=== PATIENT | female | born 1990 | race Hispanic/Latino ===

== ENCOUNTER 2017-10-28 07:49 | Emergency (ER) | payer SELFPAY ==
[2017-10-28] MEDS ORDERED: Ibuprofen 800 MG TAB ONE (08:07)
[2017-10-28] MEDS ORDERED: Acetaminophen 500 MG TAB ONE (08:07)
--- NOTE | 2017-10-28 08:38 | RAD ---
AP VIEW CHEST: 10/28/2017 HISTORY: Sore throat. Bodyaches. Abdominal pain. COMPARISON: Not available. FINDINGS: AP view chest demonstrates the lungs to be well aerated. No evidence of active intrathoracic disease is seen. No evidence of effusions, pneumonia, or pneumothorax is seen. IMPRESSION: Unremarkable anterior-posterior view chest. POS: [facility]
[2017-10-28 08:44] LABS: #Neutrophils 9.3 thou/uL (1.40-6.50); %Basophils 0.2 % (0.0-1.0); %Eosinophils 0.2 % (0.0-10.0); %Lymphocytes 8.4 % (21.0-51.0); %Monocytes 9.1 % (0.0-10.0); Hematocrit 44.9 % (36.0-47.0); Mean Platelet Volume 9.2 fL (7.4-10.4); White Blood Cell (WBC) Count 11.4 thou/uL (4.8-10.8)
[2017-10-28 08:47] LABS: Lactic Acid - Sepsis 1.7 mmol/L (0.5-2.2)
[2017-10-28 08:53] LABS: ALT (SGPT) 26 U/L (8-55); AST (SGOT) 23 U/L (5-34); Alkaline Phosphatase 106 U/L (40-150); Anion Gap 16 mmol/L (10-20); BUN (Urea Nitrogen) 9 mg/dL (7.0-18.7); Bilirubin, Total 0.4 mg/dL (0.2-1.2); CK (CPK) 58 U/L (29-168); Calc. Creatinine Clearance 0 mL/min (70-130); Carbon Dioxide 22 mmol/L (22-29); Chloride 102 mmol/L (98-107); Estimated GFR-MDRD Greater than 90; Globulin 4.2 g/dL (2.4-3.5); Protein, Total 9.1 g/dL (6.0-8.3)
[2017-10-28 09:48] LABS: Bilirubin Negative (Negative); Blood, Urine Trace (Negative); Glucose, Urine (Dipstick) Negative (Negative); Ketone, Urine Negative (Negative); Nitrite Negative (Negative); Protein, Urine (Dipstick) Negative (Neg-Trace); Urobilinogen 0.2 mg/dL (0.2-1.0)
[2017-10-28 09:51] LABS: Bacteria/HPF 1+ HPF (None Seen); Hyaline Casts/LPF 0-3 HYALINE CAST LPF (0-3 Hyaline)
== END 2017-10-28 11:22 | disposition home or self-care (01) ==
LOC: ERS 07:49
DX: J11.1 Influenza due to unidentified influenza virus with other respiratory manifestations (principal); R00.0 Tachycardia, unspecified
CPT/HCPCS: 71010; 80053; 81003; 81015; 82550; 83605; 85025; 87040; 93005; 94760; 96360; 96361

== ENCOUNTER 2020-02-10 15:18 | Day surgery (SDC) | payer OTHER ==
[2020-02-10 15:58] VITALS: BMI 40.4
[2020-02-10] MEDS ORDERED: hydrALAZINE 20 MG/ML VIAL SLOW IVP PRN (16:17)
[2020-02-10 17:30] LABS: Amnisure Test No Membranes Rupture (No Rupture)
[2020-02-10 17:32] LABS: Amnisure Internal Control QC ACCEPTABLE (ACCEPTABLE)
--- NOTE | 2020-02-10 17:34 | PDOC.FPROB ---
FMR OB H&P: HPI - History of Present Illness Chief Complaint: LOF Indentification: 29 yo @ 31.4 wks History of Present Illness: Pt comes in complaining around 1400 today was coughing and felt a little gush of water. Has had some fluid leakage ever since then when she coughs. Denies any urinary sx's. Denies any burning when peeing. Denies increased urinary frequency. Denies any vaginal discharge, itching or irritation. Denies any headaches. Reports flashing lights in vision for last month. Pt reports having cough and nasal congestion for the last 2 weeks. reports 4 yo at home has similar sx's. Denies any fevers or chills. denies any SOB. Denies any increased work of breathing. Primary Care Physician: Wolfgang FMR OB H&P: Current - Care : 2 Para: 1 Gestational age: 31.4 - OB Labs Blood type: unknown RH: unknown Antibody Screen: unknown HIV: unknown RPR: unknown HepBsAg: unknown Quad screen: unknown Gonorrhea: unknown Chlamydia: unknown FMR OB H&P: History - Past Medical History PMH: Obesity - OB History OB History: One prior . - Surgical History Sx History: None - Social History Social History: Denies any smoking, drinking or illicit drug use - Family History Family History: Noncontributory FMR OB H&P: Medications - Current Home Medications: Medication Instructions Recorded Confirmed Type Ferrous Sulfate 324 mg PO DAILY 04/05/17 02/10/20 History Vitamin 1 tablet PO DAILY 04/05/17 02/10/20 History metFORMIN [Glucophage] 500 mg PO [facility]- 02/10/20 02/10/20 History Allergies/Adverse Reactions: Allergies Allergy/AdvReac Type Severity Reaction Status Date / Time No Known Allergies Allergy Verified 02/10/20 15:54 FMR OB H&P: ROS - Review of Systems General: denies: fever/chills, night sweats, fatigue Eyes: reports: vision changes (reports flashing lights in vision every now and then for last month.) ENT: denies: nasal congestion Cardiovascular: denies: chest pain Respiratory: reports: cough, congestion. denies: shortness of breath, exercise intolerance Gastrointestinal: denies: abdominal pain, nausea, vomiting, diarrhea, constipation Genitourinary (Female): denies: incontinence, dysuria, hematuria, vaginal discharge, vaginal pain, vaginal bleeding, contractions, vaginal pressure Musculoskeletal: denies: pain Integumentary: denies: itching, rash FMR OB H&P: Vital Signs - Maternal Vital signs: T 99.5, O2 sat 95% on RA - Heart Tones Baseline: 140 Variability: moderate Acceleration: present Deceleration: absent Category: category 1 [place] contractions every: None noted FMR OB H&P: Physical Exam - Physical Exam General: NAD, awake, alert and oriented HEENT: normocephalic and atraumatic, grossly normal vision, grossly normal hearing Neck: FROM Heart: other (Pt was covid r/o and and they did not have sterile stethescope in the room for us to use. We did not take our stethescope in to prevent spread of infection. This is the same for the resp exam.) General: no respiratory distress, other (No increased work of breathing noted) Abdomen: soft, non-tender, no masses Musculoskeletal: FROM in all four extremities Neurological: sensation to pain,touch and proprioception grossly normal - Pelvic Exam Vulva: normal hair distribution, no blood Deviation from normal: some white discharge noted Cervix: no masses, no lesions, no blood (No sign of pooling noted) SVE: 5:00 closed FMR OB H&P: A/P - Problem List (1) Current Visit: Yes Status: Acute (2) Viral URI with cough Current Visit: Yes Status: Acute Code(s): J06.9 - ACUTE UPPER RESPIRATORY INFECTION, UNSPECIFIED Disposition: 29 yo @ 31.4 weeks here w/ concern for LOF -Cat 1 strip. FHR 140. -Amnisure pending. No pooling noted on speculum exam. -VP3 obtained. -Due to patient being covid and to prevent having to go in and out of the room we got GBS and gonorrhea/chlamydia just in case amnisure came back positive. URI sx -Cough and nasal congestion x2 weeks. O2 sats stable. T 99.5 -Covid, Flu and RVP swabs obtained. Will await results -If pt d/c home advised to self quarantine until sx's resolve Discussion: Date/Time: 02/10/20 4116 This H&P was discussed with [] and [] who agree with the above documentation and plan.
== END 2020-02-10 18:10 | disposition home health service (06) ==
LOC: L&D/OP 15:18
PROVIDERS: ATTEND Student in an Organized Health Care Education/Training Program
DX: O99.89 Other specified diseases and conditions complicating pregnancy, childbirth and the puerperium (principal); N89.8 Other specified noninflammatory disorders of vagina; O99.513 Diseases of the respiratory system complicating pregnancy, third trimester; J06.9 Acute upper respiratory infection, unspecified; Z3A.31 31 weeks gestation of pregnancy; Z79.84 Long term (current) use of oral hypoglycemic drugs; Z79.899 Other long term (current) drug therapy
CPT/HCPCS: 84112; 87081; 87480; 87491; 87510; 87591; 87633; 87660; 87804; 99285; U0001

== ENCOUNTER 2020-02-25 11:26 | Day surgery (SDC) | payer OTHER ==
[2020-02-25 11:42] VITALS: BP 123/72; TEMP 98.4; BMI 39.3
[2020-02-25] MEDS ORDERED: hydrALAZINE 20 MG/ML VIAL SLOW IVP PRN (12:41)
--- NOTE | 2020-02-25 12:44 | PDOC.FPROB ---
FMR OB H&P: HPI - History of Present Illness Chief Complaint: decreased FM Indentification: 29 yo at 33.1 wga by unknown dating criteria History of Present Illness: Pt here for decreased movement. Noticed somewhat last night that fetus was not moving as much. This morning she counted 7 kicks in 2 hours so she came in. She has been eating and drinking normally. She has A2-GDM on metformin. Checked her sugar this morning and it was 100. She is unsure if she has had LOF ; says she constantly leaks and is unsure if it is urine, discharge, or small amounts of fluid. Denies VB. Has been having intermittent contractions and some vaginal pressure without lasting pattern or regularity over the past few weeks. + flashes in her vision and headache. BP have been normal at PN appts. Was recently here 02/09 and tested for Covid, found to be negative. Had URI symptoms and positive for rhinovirus. Primary Care Physician: Wolfgang FMR OB H&P: Current - Care : 2 Para: 1001 Gestational age: 33.1 Course/Complications: A2 GDM on metformin Hx of gHTN on ASA81 - OB Labs Blood type: unknown RH: unknown Antibody Screen: unknown HIV: unknown RPR: unknown HepBsAg: unknown Quad screen: unknown Gonorrhea: unknown Chlamydia: unknown GBS: negative (done at last visit here in hospital) FMR OB H&P: History - Past Medical History PMH: Obesity - OB History OB History: x1, induced for gHTN at 39 wga GDM this - P[employer] History [employer] History: denies - Surgical History Sx History: none - Social History Social History: denies - Family History Family History: denies FMR OB H&P: Medications - Current Home Medications: Medication Instructions Recorded Confirmed Type Vitamin 1 tablet PO DAILY 04/05/17 02/25/20 History metFORMIN [Glucophage] 500 mg PO HS 02/10/20 02/25/20 History Aspirin 81 mg PO DAILY 02/25/20 02/25/20 History Allergies/Adverse Reactions: Allergies Allergy/AdvReac Type Severity Reaction Status Date / Time No Known Allergies Allergy Verified 02/10/20 15:54 FMR OB H&P: ROS - Review of Systems General: denies: fever/chills Eyes: reports: scotomas. denies: eye pain ENT: denies: nasal congestion, rhinorrhea, ear pain, ringing in ears Cardiovascular: denies: chest pain Respiratory: denies: cough Gastrointestinal: denies: abdominal pain Genitourinary (Female): reports: polyuria, contractions, vaginal pressure. denies: dysuria, vaginal discharge Musculoskeletal: reports: pain Neurologic: denies: weakness Integumentary: denies: rash Psychological: denies: depression, anxiety FMR OB H&P: Vital Signs - Maternal Vital signs: Vital Signs - First Documented Temp Pulse Resp BP 98.4 F 91 18 123/72 02/25/20 11:41 02/25/20 11:41 02/25/20 11:41 02/25/20 11:41 - Heart Tones Baseline: 160 (reactive) [place] contractions every: uterine irritability FMR OB H&P: Physical Exam - Physical Exam General: NAD, awake, alert and oriented HEENT: normocephalic and atraumatic, no scleral icterus, grossly normal vision, grossly normal hearing Neck: supple, trachea midline Heart: RRR, normal S1/S2, no murmurs/rubs/gallops, no edema General: CTAB, no respiratory distress, no wheezing Abdomen: soft, gravid, non-tender Musculoskeletal: pulses present Skin: no rash Lymphatic: no unusual bruising or bleeding Psychiatric: intact recent and remote memory, normal mood and affect - Pelvic Exam Cervix: no masses SVE: fingertip/50%/high Membranes: intact, no pooling on exam Estimated Weight: 6 lbs FMR OB H&P: Results - Labs Lab results: amnisure negative. FMR OB H&P: A/P - Problem List (1) Decreased movement Status: Acute Code(s): O36.8190 - DECREASED MOVEMENTS, UNSP TRIMESTER, UNSP (2) Status: Acute Disposition: observed on L&D. May discharge home w/ return precautions given. Pt has BPP tomorrow w/ Dr. Goss. Discussion: Date/Time: 02/25/20 1242 29 yo at 33.1 here for: Decreased FM - improved since arrival. - NST reactive. Initially tachycardic but improved as pt relaxed to 150 bpm - f/u w/ PCP tomorrow for regularly scheduled BPP/NST Vaginal fluid - amnisure negative - no pooling on speculum exam Intermittent contractions - Cervix fingertip/50%/high - no regular contractions on monitoring - uterine irritability apparent - return precautions given A2GDM - continue metformin Hx of gHTN - continue ASA81 This H&P was discussed with Dr. Cedillo, who agrees with the above documentation and plan. Signature: Maxwell Quintero MD PGY1 Addendum - Attending - Attending Attestation Date/Time: 02/26/20 1628 I personally evaluated the patient and discussed the management with Dr. Quintero on 02/25/20. I agree with the History, Examination, Assessment and Plan documented above with any addition or exceptions noted below. 29 yo at 33.1 here for decreased FM on kick counts and fluid leak.. FHT 's Cat 1 and reactive. Pt. feeling movement now and exam/amnisure negative for ROM. Stable for d/c to continue kick counts as previously instructed.
[2020-02-25 13:09] LABS: Amnisure Internal Control QC ACCEPTABLE (ACCEPTABLE); Amnisure Test No Membranes Rupture (No Rupture)
== END 2020-02-25 13:44 | disposition home or self-care (01) ==
LOC: SJX 11:26 → L&D/OP 13:44
PROVIDERS: ATTEND Student in an Organized Health Care Education/Training Program
DX: O36.8130 Decreased fetal movements, third trimester, not applicable or unspecified (principal); O24.415 Gestational diabetes mellitus in pregnancy, controlled by oral hypoglycemic drugs; O47.03 False labor before 37 completed weeks of gestation, third trimester; O99.89 Other specified diseases and conditions complicating pregnancy, childbirth and the puerperium; N89.8 Other specified noninflammatory disorders of vagina; Z3A.33 33 weeks gestation of pregnancy; Z79.82 Long term (current) use of aspirin; Z79.84 Long term (current) use of oral hypoglycemic drugs; Z11.59 Encounter for screening for other viral diseases
CPT/HCPCS: 84112; 99284

== ENCOUNTER 2020-03-04 19:39 | Day surgery (SDC) | payer MEDICAID, OTHER ==
[2020-03-04 20:05] VITALS: BP 136/88; TEMP 98.5; BMI 40.0
[2020-03-04] MEDS ORDERED: hydrALAZINE 20 MG/ML VIAL SLOW IVP PRN (21:05)
--- NOTE | 2020-03-04 21:10 | PDOC.FPROB ---
R OB H&P: HPI - History of Present Illness Chief Complaint: CTX Indentification: History of Present Illness: Patient is a 29 y/o female at 34.2W EGA by LMP, c/w 9.4W US, who presents to L&D for evaluation of contractions. Patient states that she began to feel the contractions suddenly at 0400 today, and that they were occurring Q5M and increasing in severity. Patient denies loss of fluid, vaginal bleeding or discharge or loss of movement. Patient's course has been complicated by A2GDM, for which she takes Metformin 1000 mg PO daily, and gHTN, for which she takes a daily ASA. Patient states that her POC Glucose readings at home are in the 110s and 120s, and that she checks her SBPs daily with readings typically ranging from 120s to 130s w/o severe-range pressures. Patient states that all testing has been unremarkable thus far, specifically with regard to HIV, RPR, HepB, HepC, GC and Chlamydia. She denies recent sexual intercourse. Patient denies fevers, chills, N/V, VANEGAS, visual disturbances, auditory disturbances, cough, chest pain, peripheral edema, shortness of breath, RUQ pain , recent sexual intercourse, dysuria and recent falls or trauma. Primary Care Physician: [facility] - Dr. 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 Patient is currently unemployed. - Family History Family History: Unsure of FHx, as patient is not close with her parents. FMR OB H&P: Medications - Current Home Medications: Medication Instructions Recorded Confirmed Type Vitamin 1 tablet PO DAILY 04/05/17 03/04/20 History metFORMIN [Glucophage] 500 mg PO HS 02/10/20 03/04/20 History Aspirin 81 mg PO DAILY 02/25/20 03/04/20 History Allergies/Adverse Reactions: Allergies Allergy/AdvReac Type Severity Reaction Status Date / Time No Known Allergies Allergy Verified 03/04/20 19:57 FMR OB H&P: ROS - Review of Systems General: reports: fatigue. denies: fever/chills, recent trauma Eyes: denies: vision changes ENT: denies: rhinorrhea Cardiovascular: denies: chest pain, edema Respiratory: denies: cough, shortness of breath Gastrointestinal: denies: nausea, vomiting Genitourinary (Female): reports: vaginal pain, contractions, vaginal pressure. denies: dysuria, hematuria, vaginal discharge, vaginal bleeding Musculoskeletal: denies: arthritis/arthralgias Neurologic: denies: seizures, weakness, headache FMR OB H&P: Vital Signs - Maternal Vital signs: Vital Signs - First Documented Temp Pulse Resp BP 98.5 F 90 18 136/88 03/04/20 19:55 03/04/20 19:55 03/04/20 19:55 03/04/20 19:55 - Heart Tones Baseline: 150 Variability: moderate Acceleration: absent Deceleration: absent FMR OB H&P: Physical Exam - Physical Exam General: NAD, awake, alert and oriented, other (Breathing through contractions.) HEENT: normocephalic and atraumatic, PERRLA, EOMI, conjunctiva clear, no scleral icterus, grossly normal vision, grossly normal hearing Neck: supple, FROM, trachea midline, no LAD Chest: non-tender to palpation, no lesions Breast: symmetric Heart: RRR, normal S1/S2, no murmurs/rubs/gallops, pulses present, no edema General: CTAB, no respiratory distress, good air movement, no rales/rhonchi, no wheezing, no retractions Abdomen: gravid, non-tender, bowel sound present Musculoskeletal: pulses present, FROM in all four extremities, no misalignment/ asymmetry, no atrophy Neurological: sensation to pain,touch and proprioception grossly normal Skin: no rash, no jaundice Lymphatic: no unusual bruising or bleeding, no purpura, no petechia, no LAD Psychiatric: intact recent and remote memory, good judgement and insight, normal mood and affect - Pelvic Exam Vulva: normal hair distribution Cervix: no masses, no blood SVE: 1.5/50/High Mckee score: 3 Membranes: Intact Presentation: Vertex FMR OB H&P: A/P - Problem List (1) contractions Current Visit: Yes Status: Acute Code(s): O47.9 - FALSE LABOR, UNSPECIFIED (2) Gestational diabetes Current Visit: Yes Status: Acute Code(s): O24.419 - GESTATIONAL DIABETES MELLITUS IN , UNSP CONTROL (3) Gestational hypertension Current Visit: Yes Status: Acute Code(s): O13.9 - GESTATIONAL HTN W/O SIGNIFICANT PROTEINURIA, UNSP TRIMESTER (4) Obesity Current Visit: Yes Status: Chronic Code(s): E66.9 - OBESITY, UNSPECIFIED (5) Current Visit: No Status: Acute Disposition: Patient is a 29 y/o female at 34.2W EGA by LMP, c/w 9.4W US, who presents to L&D for evaluation of CTX. 1. CTX -Patient's CTX were initially Q5M, but have spaced out to Q7-8M - increasingly painful -Patient denies loss of fluids, vaginal bleeding or discharge, or decreased movement -Maternal VSS -FHTs in the 150s w/ moderate variability, no acels or decels -CTX Q7-8M -SVE (2100): 1.5/5-/High -Will administer 1L NS bolus and Betamethasone 12 mg Q24H for lung maturation -Plan for repeat SVE in 2H to assess for cervical change 2. A2GDM -Currently well-controlled with Metformin 1000 mg PO daily -Adjust plan accordingly if patient is admitted for Pre-Term Labor 3. gHTN -Multiple SBPs in the high 130s and low 140s since presentation -Per chart review, Pre-E labs were WNL -Will repeat Urine Protein/Creatinine, CBC, CMP at this time -Hydralazine 10 mg PO PRN for elevated BPs 4. Obesity -Patient is at increased risk of Macrosomia based on body habitus and Hx of prior LGA baby -Adjust plan accordingly if patient is admitted for Pre-Term Labor PCP: [facility] - Dr. Goss Diet: NPO Activity: Ad ja VTE PPx: None IVF: 1L NS Bolus Dispo: Patient is currently stable and being monitored on L&D. Await lab results as per above and plan for repeat SVE in 2H in order to assess for cervical change - alter plan as necessary. Expected LOS < 8H Discussion: Date/Time: 03/04/202109 This H&P was discussed with [] and [] who agree with the above documentation and plan.
[2020-03-04] MEDS ORDERED: Sodium Chloride 0.9% 1,000 ML IV SCH (21:15)
[2020-03-04] MEDS ORDERED: Betamet Acet/Betamet Na Ph 30 MG/5 ML VIAL IM SCH (21:15)
--- NOTE | 2020-03-04 21:24 | HP ---
TIME OF EVALUATION: Roughly 2049, it is now 2101. LOCATION: Triage A. This is a patient of the clinic who was first seen by the residents on-call. I have seen the patient at bedside and I agree with the plan. In brief, this patient is a female, 29-year-old, G2, P1, who is currently at 34 weeks and 2 days by LMP and a 1st trimester ultrasound which agrees. She is here for possible contractions that are irregular. She denies vaginal bleeding or leakage of fluid and she has good movement. She does her complicated by A2 diabetes mellitus, and she is on metformin 1000 mg daily. She is also on low-dose aspirin. She has a history of PIH with her first and she has had previous PIH workup at the clinic. She does not have headaches, right upper quadrant change, or history of chronic hypertension. REVIEW OF SYSTEMS: Complete review of systems was checked and is otherwise negative unless specified in the HPI. OB HISTORY: Significant for previous term delivery. PAST MEDICAL HISTORY: Obesity. complications include A2 diabetes. ALLERGIES: NONE. PHYSICAL EXAMINATION: VITAL SIGNS: Her BMI is 40. Blood pressure is 140/90. She is afebrile. Pulse is in 80s to 90s. GENERAL: She is in no acute distress. ABDOMEN: Soft and nontender. MUSCULOSKELETAL: Cervical exam is pending. On the monitor, heart tones are reactive at 140s with no pathological decelerations. There is some uterine irritability and occasional contractions noted. ASSESSMENT: This is a 29-year-old G2, P1, at 34 weeks and 2 days by sure dating criteria with threatened labor. PLAN: 1. At 34 weeks, no indication for FFN and as we will manage her expectantly. 2. AmniSure not collected as there is no history or suspicion of leakage. 3. I have ordered AST, creatinine and a CBC and a urine protein to creatinine ratio for blood pressures. 4. If her blood pressures continue to be mildly elevated, we can follow her up in 48 hours as long as there is no severe criteria. 5. Celestone for threatened labor as she is under 36 weeks and 6 days. I did explain this to her that we would give her one injection now and another one in 24 hours. I did explain to her that this may alter her blood sugars, but because she is not a brittle diabetic, the risk of hyperglycemia is accepted over the benefit of late steroids. 6. We will check her cervix in about 2 hours or so to see if there is any cervical change. 7. Admission if there is suspicion of active labor. Job ID: [id number]
[2020-03-04 21:38] LABS: #Basophils 0.1 thou/uL (0.0-0.2); #Eosinphils 0.1 thou/uL (0.0-0.7); #Lymphocytes 1.9 thou/uL (1.20-3.40); #Monocytes 0.6 thou/uL (0.11-0.59); #Neutrophils 5.9 thou/uL (1.40-6.50); %Basophils 0.6 % (0.0-1.0); %Eosinophils 0.6 % (0.0-10.0); %Lymphocytes 22.3 % (21.0-51.0); %Monocytes 6.6 % (0.0-10.0); %Neutrophils 69.8 % (42.0-75.0); Hemoglobin 12.5 g/dL (12.0-16.0); Mean Corpuscular HGB CONC 33.3 g/dL (32.0-36.0); Mean Corpuscular Hemoglobin 27.8 pg (27.0-31.0); Mean Corpuscular Volume 83.7 fL (78.0-98.0); Mean Platelet Volume 9.4 fL (7.4-10.4); Platelet Count 217 thou/uL (130-400); RBC Distribution Width 13.5 % (11.5-14.5); White Blood Cell (WBC) Count 8.5 thou/uL (4.8-10.8)
[2020-03-04 22:00] LABS: Creatinine, Urine 49.89 mg/dL (47-110)
[2020-03-04 22:02] LABS: ALT (SGPT) 12 U/L (8-55); AST (SGOT) 10 U/L (5-34); Albumin 3.7 g/dL (3.5-5.0); Alkaline Phosphatase 158 U/L (40-110); Anion Gap 15 mmol/L (10-20); BUN (Urea Nitrogen) 6 mg/dL (7.0-18.7); Bilirubin, Total 0.2 mg/dL (0.2-1.2); Calc. Creatinine Clearance 217 mL/min (70-130); Calcium 9.4 mg/dL (7.8-10.44); Carbon Dioxide 19 mmol/L (22-29); Chloride 107 mmol/L (98-107); Estimated GFR-MDRD Greater than 90; Globulin 3.1 g/dL (2.4-3.5); Glucose 115 mg/dL (70-105); Potassium 3.5 mmol/L (3.5-5.1); Protein, Total 6.8 g/dL (6.0-8.3); Sodium 137 mmol/L (136-145)
--- NOTE | 2020-03-04 23:26 | PDOC.LDPN ---
Labor & Delivery Progress Note - Subjective Subjective: painful contractions - Objective Abnormal vital signs: BP @ ~2254 160/88 General: breathing through contractions Dilation: 1.5 Effacement: 50% Station: -3 FHT: category 1 [place] contractions every: ~7 minutes Resuscitative measures: maternal IV fluids - Assessment (1) Gestational diabetes Code(s): O24.419 - GESTATIONAL DIABETES MELLITUS IN , UNSP CONTROL Current Visit: Yes Status: Acute (2) Gestational hypertension Code(s): O13.9 - GESTATIONAL HTN W/O SIGNIFICANT PROTEINURIA, UNSP TRIMESTER Current Visit: Yes Status: Acute (3) contractions Code(s): O47.9 - FALSE LABOR, UNSPECIFIED Current Visit: Yes Status: Acute (4) Obesity Code(s): E66.9 - OBESITY, UNSPECIFIED Current Visit: Yes Status: Chronic Plan: other -: Patient is a 29 y/o female at 34.2W EGA by LMP, c/w 9.4W US, who presents to L&D for evaluation of CTX. 1. CTX, r/o labor -Patient's CTX still occuring Q7-8M & painful s/p 1L NS bolus but repeat SVE unchanged after 2 hours of monitoring. -Maternal VS WNLs w/ exception of 1 isolated severe range BP as noted below. -FHTs in the 120s w/ moderate variability & + accels, cat 1 strip -s/p Betamethasone 12 mg IM for lung maturation -Plan for d/c home with return visit tomorrow for second steroid injection. 2. A2GDM -Currently well-controlled with Metformin 1000 mg PO daily. Continue upon d/c. Counseled that steroids will cause transient elevation in BG levels. 3. gHTN -4 elevated SBPs since presentation & only 1 isolated severe range pressure after getting back from bathroom @ ~2254 @ 160/88 but asymptomatic for severe features and repeat BP right after below severe range. -Pre-E labs negative w/ NL Plts, AST/ALT, & Cr @ 217, 10/12, & 0.63 respectively. Urine protein:Creatinine ratio of 0.26. -Counseled to continue BID BP monitoring at home and to return to L&D if any severe range pressures noted at home and/or she develops any severe range symptoms including VANEGAS, worsening vision changes, chest or RUQ pain, and/or shortness of breath. 4. Obesity -Aware. Patient is at increased risk of Macrosomia based on body habitus and Hx of prior LGA baby. Dispo: Patient remains stable w/ Cat 1 tracing after 2 hours of monitoring on L& D. Will d/c home with instructions to return to L&D tomorrow for second IM steroid injection and sooner should she develop gHTN severe features as noted above.
--- NOTE | 2020-03-04 23:33 | PDOC.EVN ---
Event Note - Event Note Event Note: B)Ps with one systolic value of 160 (isolated). ASX. Ok for recheck BP in 24 hrs with second celestone tomorrow PM. Labs reviewed
== END 2020-03-04 23:32 | disposition home or self-care (01) ==
LOC: L&D/OP 19:39
PROVIDERS: ATTEND Student in an Organized Health Care Education/Training Program
DX: O60.03 Preterm labor without delivery, third trimester (principal); O24.415 Gestational diabetes mellitus in pregnancy, controlled by oral hypoglycemic drugs; O13.3 Gestational [pregnancy-induced] hypertension without significant proteinuria, third trimester; O99.213 Obesity complicating pregnancy, third trimester; E66.9 Obesity, unspecified; Z3A.34 34 weeks gestation of pregnancy; Z79.82 Long term (current) use of aspirin; Z79.84 Long term (current) use of oral hypoglycemic drugs
CPT/HCPCS: 36415; 80053; 82570; 84156; 85025; 96360; 96372; 99284; J0702

== ENCOUNTER 2020-03-05 11:09 | Inpatient (IN) | payer MEDICAID, OTHER, SELFPAY ==
[2020-03-05] MEDS ORDERED: hydrALAZINE 20 MG/ML VIAL SLOW IVP PRN ×2 (12:04→12:26)
[2020-03-05] MEDS ORDERED: Methylergonovine 0.2 MG/ML VIAL IM PRN (12:26)
[2020-03-05] MEDS ORDERED: Carboprost 250 MCG/ML AMP IM PRN (12:26)
[2020-03-05] MEDS ORDERED: Misoprostol 200 MCG TAB PR PRN (12:26)
[2020-03-05] MEDS ORDERED: Acetaminophen 500 MG TAB PO PRN (12:26)
[2020-03-05] MEDS ORDERED: Lidocaine 1% (PF) 30 ML VIAL SC PRN (12:26)
[2020-03-05] MEDS ORDERED: Promethazine HCl 25 MG/ML VIAL IM PRN (12:26)
[2020-03-05] MEDS ORDERED: Ondansetron PF 4 MG/2 ML Vial IVP PRN (12:26)
[2020-03-05] MEDS ORDERED: Lactated Ringer's 1,000 ML IV SCH (12:30)
--- NOTE | 2020-03-05 12:37 | PDOC.LDHP ---
Labor and Delivery H&P Chief complaint: contractions, other (vaginal bleeding) HPI: Patient is a 29yo @ 34.3wga c/w 9.4wk US that presents to L&D for vaginal bleeding and contractions. Patient reports that she noticed vaginal bleeding this morning while she was in the shower. She also endorses contractions that started at 830am this morning and she has felt them every 5min. She denies LOF, denies headache, vision changes, abdominal pain, swelling, chest pain, cough, sob. She endorses decreased FM over the last 2 weeks including today. She was at [facility] last night for contractions and did not make cervical change from 1.5/50/-3. She received one dose of celestone at 930pm last night. She also had one severe BP last night and had pre-e labs done, which were negative. Due to no cervical change manager 2 hours she was discharged with instructions to f/u today for her second celestone injection. has been complicated by A2GDM on 1000mg metformin qd and gHTN, patient on daily asa. Due date: 04/13/20 Grav: 2 Para: 1 OB History Details: 06/19/17: @ 38wga, 9lb 4oz, M -complicated by: macrosomia, A1GDM, elevated BP requiring home monitoring Current complications: gestational diabetes, gestational hypertension Abnormal US findings: No Past Medical History: None Last pap: 2017 (NILM) Current medications: pre-marilou vitamins, iron, other (asa) Previous surgical history: none Allergies/Adverse Reactions: Allergies Allergy/AdvReac Type Severity Reaction Status Date / Time No Known Allergies Allergy Verified 03/04/20 19:57 Social history: none - Physical Exam Abnormal vital signs: BP 141/83 > 131/84 General: NAD, resting Heart: RRR Lungs: nonlabored breathing Abdomen: NTTP Extremeties: trace edema FHT: category 2, variable decelerations, absent or minimal variables [place] contractions every: 8min - Vaginal Exam cm dilated: 3 Effacement: 75% Station: 0 - OB Labs Blood type: O RH: positive Antibody Screen: negative HIV: negative RPR: negative HEPSAg: negative 1 hour GCT: positive Rubella: immune Additional Labs: Chlamydia neg Gonorrhea neg A1C 5.9 H/H 11.4/33.2 on 12/11/19 H/H 12.6/37.1 on 02/20/20 fasting bg 105 1hr gtt 228 2hr gtt 175 Progenity: negative, male fetus - Assessment L&D Assessment: labor - Plan Plan: admit to L&D, GBS antibiotic prophylaxis, anesthesia consult for pain management -: Patient is a 29yo @ 34.3wga c/w 9.4wk US that will be admitted to L&D for: # labor #Vaginal bleeding #sIUP, -placenta location posterior per prior US -cervical check 1.550/-3 last night -cervical check /0 @ 1220 03/05 -no pooling appreciated on sterile spec exam, 20ml of vaginal blood seen -will admit to L&D for presumed labor -received 1st dose of celestone last night, will give second dose for respiratory maturation -1L bolus LR followed by 125ml/hr LR -prophylactic IV penicillin 2/2 labor and unknown GBS status -GBS swab pending -q2h accuchecks for GDM -FHT: minimal variability with 1 variable decel, BPP pending -will continue to monitor FHT and monitor to see if patient makes cervical change, no augmentation -neonatology consulted, appreciate recs #GDM -patient was on metformin at home -q2h accuchecks #gHTN -patient had initial BP of 141/83 -had one severe BP last night, pre-e labs negative -patient asymptomatic today, denies VANEGAS, vision changes, swelling -will continue to monitor BP and consider repeating pre-e labs if patient has severe pressures #Obesity #Hx of macrosomic baby -aware -EFW 64.6% on last growth US 11/15/2019 Dispo: admit to L&D for presumed labor: 2nd dose of steroids, IV penicillin for prophylaxis, continued monitoring and q4h cervical checks PCP: Elham/Salome Addendum - Attending - Attending Attestation Date/Time: 03/06/20 2724 I personally evaluated the patient and discussed the management with the team on day of admission. I agree with the History, Examination, Assessment and Plan documented above with any addition or exceptions noted below. PTL with vaginal bleeding, ddx includes placental abruption. GBS swab and being ppx. Complete steroid course. Initially cat 2 FHTs with occasional variables but cat 1 after fluid bolus. Expectant management.
[2020-03-05] MEDS ORDERED: Betamet Acet/Betamet Na Ph 30 MG/5 ML VIAL IM SCH (12:45)
[2020-03-05] MEDS ORDERED: Penicillin G Potassium 5 MILL.UNITS in Sodium Chloride 0.9% 100 ML IVPB SCH (12:45)
[2020-03-05 13:25] VITALS: BMI 40.0
--- NOTE | 2020-03-05 13:26 | PDOC.APC ---
Antepartum Consult SINTIA STILL is a 29 year old female at [34 3/7] gestational weeks. I was asked by Dr Flowers to speak with the patient regarding anticipated course for a baby born at 34 weeks. I spoke with the patient. I outlined that the timing and mode of delivery is a decision that will be made by the OB service. Once the patient is taken for delivery, the resuscitation team will be present. The initial focus will be on respiratory stabilization and may include minimal assistance, CPAP or intubation with surfactant administration. I discussed that the patient will need to be admitted to the NICU in an isolette due to temperature instability associated with prematurity. We will then obtain IV access (peripheral will be first line, umbilical if unable to obtain peripheral) as babies are at risk for hypoglycemia. We discussed that babies born are at higher risk for feeding intolerance, infection and jaundice. I discussed that breastmilk is the best nutrition for babies and she is strongly encouraged to pump after delivery. Mother does plan to breastfeed. I explained that the duration of hospital stay will be determined on the clinical course of the baby. I outlined the milestones that needed to be achieved to ensure safe discharge home. She had the opportunity to ask questions. I encouraged her to contact our service again if additional questions arise. I spent a total of 20 minutes with patient & family with greater than 50% of the time counseling & coordinating care.
--- NOTE | 2020-03-05 13:33 | ULT ---
ULTRASOUND BIOPHYSICAL PROFILE: DATE: 03/05/2020 HISTORY: 29-year-old female. Evaluate biophysical profile and placental location. FINDINGS: breathin tone: 2 movement: 2 Amniotic fluid volume: 2 Placenta: Left lateral. presentation: Vertex heart rate: 147 bpm CHIQUITA: 7.5 cm Maternal cervix: Completely obscured. IMPRESSION: 1. Normal biophysical profile score of 8 out of 8, excluding the nonstress test. 2. Amniotic fluid index 7.5 cm.
[2020-03-05 13:53] LABS: Hemoglobin 13.2 g/dL (12.0-16.0); Mean Corpuscular HGB CONC 33.7 g/dL (32.0-36.0); Mean Corpuscular Hemoglobin 28.5 pg (27.0-31.0); Mean Corpuscular Volume 84.4 fL (78.0-98.0); Platelet Count 222 thou/uL (130-400); RBC Distribution Width 13.8 % (11.5-14.5); Red Blood Cell (RBC) Count 4.62 mill/uL (4.20-5.40); White Blood Cell (WBC) Count 12.5 thou/uL (4.8-10.8)
[2020-03-05 14:32] LABS: Syphilis Antibody Nonreactive (Nonreactive); Syphilis Antibody Index 0.06 S/CO (<1.00 Non-Reactive)
[2020-03-05 14:33] LABS: HBSAg Index 0.17 S/CO (0-0.99); Hep B Surf Ag Non-Reactive S/CO (NonReactive)
--- NOTE | 2020-03-05 16:04 | PDOC.LDPN ---
Labor & Delivery Progress Note - Subjective Subjective: comfortable, painful contractions - Objective Vital signs reviewed and normal: yes -: Patient is a 29yo @ 34.3wga c/w 9.4wk US that will be admitted to L&D for: # labor - 2330 1.5/50/-3 - 1230 3/50/0 - 1600 3/50/0 - s/p 2 doses celestone, 2nd dose 1300 on 03/05 - GBS pending, penicillin ppx started 1300 - neonatology has visited with patient Cat I- good variability, accels present, no consistent decels, baseline 140 -> 1-2 variable decels per hour with contractions but not consistent #Vaginal bleeding - differential includes bloody show, cervical irritation from checks, or developing placental abruption - at this time great variability and accels present, H/H appropriate, will monitoring, discussed possibility of with mother should status change - posterior placenta # GDMA2 - controlled with metformin - accuchecks q2 hr #gHTN -patient had initial BP of 2 mild range pressures thus far -had one severe BP last night, pr/cr 0.26 -patient asymptomatic currently, denies VANEGAS, vision changes, swelling -will continue to monitor BP and consider repeating pre-e labs as needed #Obesity #Hx of macrosomic baby -EFW 64.6% on last growth US 11/15/2019 Dispo: admit to L&D for presumed labor: 2nd dose of steroids, IV penicillin for prophylaxis, continued monitoring and q4h cervical checks PCP: ESTHER-Wolfgang/Salome Addendum - Attending - Attending Attestation Date/Time: 03/06/20 1345 I personally evaluated the patient and discussed the management with the team. I agree with the History, Examination, Assessment and Plan documented above with any addition or exceptions noted below. Cat 1 on my review in the afternoon with rare variable. Continue expectant management.
[2020-03-05] MEDS: Lactated Ringer's 1,000 ML IV SCH (16:45)
[2020-03-05] MEDS: Penicillin G 2.5 MILL.units 2.5 MILL.UNITS in Premix Bag 1 BAG IVPB SCH ×2 (17:51→21:12)
[2020-03-05] MEDS ORDERED: Dextrose 5% in Water 1,000 ML IV PRN (19:42)
[2020-03-05] MEDS ORDERED: HumaLOG 300 UNITS/3 ML VIAL SC PRN ×2 (19:42)
[2020-03-05] MEDS ORDERED: Dextrose 50% Abboject 50 ML SYRINGE SLOW IVP PRN (19:42)
[2020-03-05] MEDS: Butorphanol Tartrate 1 MG/ML VIAL SLOW IVP PRN ×2 (20:14→22:25)
[2020-03-05 21:07] LABS: Creatinine, Urine 27.77 mg/dL (47-110); Protein, Urine Random Quant Less than 10 mg/dL (1-14)
[2020-03-05 21:55] LABS: ALT (SGPT) 13 U/L (8-55); AST (SGOT) 11 U/L (5-34); Albumin 3.6 g/dL (3.5-5.0); Alkaline Phosphatase 157 U/L (40-110); Anion Gap 16 mmol/L (10-20); BUN (Urea Nitrogen) 6 mg/dL (7.0-18.7); Bilirubin, Total 0.3 mg/dL (0.2-1.2); Calc. Creatinine Clearance 221 mL/min (70-130); Calcium 9.3 mg/dL (7.8-10.44); Carbon Dioxide 17 mmol/L (22-29); Chloride 109 mmol/L (98-107); Estimated GFR-MDRD Greater than 90; Globulin 3.1 g/dL (2.4-3.5); Glucose 163 mg/dL (70-105); Potassium 3.6 mmol/L (3.5-5.1); Protein, Total 6.7 g/dL (6.0-8.3); Sodium 138 mmol/L (136-145)
--- NOTE | 2020-03-05 21:58 | PDOC.BPN ---
- Brief Progress Note BP reading of 161/86 @ ~1750. However, confirmed with nurse that at time of BP check, cuff was low on patient's forearm and she was asymptomatic. Repeat check with cuff in proper position @ 1758 WNLs at 134/82. Will obtain repeat CMP and urine protein:Cr ratio though as patient has still had a few elevated but not severe range pressures since admission.
--- NOTE | 2020-03-05 22:00 | PDOC.LDPN ---
Labor & Delivery Progress Note - Subjective Subjective: painful contractions - Objective Vital signs reviewed and normal: yes General: breathing through contractions Uterine fundus: palpable contractions Dilation: 5 Effacement: 50% Station: 0 FHT: category 2 (minimal variabilty with baseline in 140s s/p stadol; no decels noted) [place] contractions every: 10-12 minutes Other exam findings: scant amount of bloody show on check AROM: clear fluid FSE placed: yes Resuscitative measures: maternal IV fluids, maternal position change - Assessment (1) labor in third trimester Code(s): O60.03 - LABOR WITHOUT DELIVERY, THIRD TRIMESTER Current Visit: Yes Status: Acute Qualifiers: Fetus number: single or unspecified fetus (2) Gestational diabetes Code(s): O24.419 - GESTATIONAL DIABETES MELLITUS IN , UNSP CONTROL Current Visit: No Status: Acute Qualifiers: Gestational diabetes mellitus control: oral hypoglycemic-controlled Trimester: third trimester Qualified Code(s): O24.415 - Gestational diabetes mellitus in , controlled by oral hypoglycemic drugs (3) Gestational hypertension Code(s): O13.9 - GESTATIONAL HTN W/O SIGNIFICANT PROTEINURIA, UNSP TRIMESTER Current Visit: No Status: Chronic Qualifiers: Trimester: third trimester Qualified Code(s): O13.3 - Gestational [ -induced] hypertension without significant proteinuria, third trimester (4) Current Visit: No Status: Acute Qualifiers: Weeks of gestation: 34 weeks Qualified Code(s): Z3A.34 - 34 weeks gestation of (5) Obesity Code(s): E66.9 - OBESITY, UNSPECIFIED Current Visit: No Status: Chronic Plan: other -: # labor - 2330 1.5/50/-3 - 1230 3/50/0 - 1600 3/50/0 - 2125 5/80/0 w/ AROM and FSE placement - s/p 2 doses celestone - GBS ppx started 1300 w/ Pen G, receiving third dose currently. - Neonatology has visited with patient & answered all questions regarding infant 's likely hospital course following delivery. - Cat II- minimal variability w/ baseline 140 s/p maternal stadol but cat 1 prior to stadol w/ accels & same baseline. ~2 sporadic variable decels since 1730 noted. - Will repeat cervical check in ~ 4 hours or sooner if increased vaginal pressure reported. #Vaginal bleeding - differential includes bloody show vs. cervical irritation from checks vs. developing placental abruption - discussed possibility of with mother should status change - posterior placenta noted on sono on admission # A2GDM - controlled with metformin - accuchecks q2 hr, mild SSI PRN #gHTN -patient has had -had one severe BP last night & today but likely 2/2 BP cuff misplacement today as noted in brief progress note. -Repeat pr/cr negative w/ <10 urine protein measured since admission & Plts, AST /ALT & Cr WNLs at 222, 19/09 & 0.62 today. -patient remains asymptomatic currently -will continue to monitor BP closely #Obesity #Hx of macrosomic baby -EFW 64.6% on last growth US 11/15/2019 Dispo: Continue close monitoring on L&D for labor. Repeat cervical check in 4 hours or sooner should patient reports increased vaginal pressure. PCP: ESTHER-Omaira
--- NOTE | 2020-03-05 23:20 | PDOC.LDPN ---
Labor & Delivery Progress Note - Subjective Subjective: painful contractions - Objective Vital signs reviewed and normal: yes General: breathing through contractions Dilation: 9 Effacement: 90% Station: 0 FHT: category 2 (baseline 130s, minimal variability) [place] contractions every: not noted on monitor but adequate based on cervical change AROM: clear fluid FSE placed: yes Resuscitative measures: maternal IV fluids, maternal position change - Assessment (1) labor in third trimester Code(s): O60.03 - LABOR WITHOUT DELIVERY, THIRD TRIMESTER Current Visit: Yes Status: Acute Qualifiers: Fetus number: single or unspecified fetus (2) Gestational diabetes Code(s): O24.419 - GESTATIONAL DIABETES MELLITUS IN , UNSP CONTROL Current Visit: No Status: Acute Qualifiers: Gestational diabetes mellitus control: oral hypoglycemic-controlled Trimester: third trimester Qualified Code(s): O24.415 - Gestational diabetes mellitus in , controlled by oral hypoglycemic drugs (3) Gestational hypertension Code(s): O13.9 - GESTATIONAL HTN W/O SIGNIFICANT PROTEINURIA, UNSP TRIMESTER Current Visit: No Status: Chronic Qualifiers: Trimester: third trimester Qualified Code(s): O13.3 - Gestational [ -induced] hypertension without significant proteinuria, third trimester (4) Current Visit: No Status: Acute Qualifiers: Weeks of gestation: 34 weeks Qualified Code(s): Z3A.34 - 34 weeks gestation of (5) Obesity Code(s): E66.9 - OBESITY, UNSPECIFIED Current Visit: No Status: Chronic Plan: continue plan of care -: # labor - 2330 1.5/50/-3 - 1230 3/50/0 - 1600 3/50/0 - 2125 5/80/0 w/ AROM and FSE placement - ~2245 8/90/0 - 2320 9/90/0 - s/p 2 doses celestone - GBS ppx started 1300 w/ Pen G, receiving third dose currently. - Neonatology has visited with patient & answered all questions regarding 's likely hospital course following delivery. - Cat II- minimal variability w/ baseline 130 s/p maternal stadol but cat 1 prior to stadol w/ accels & same baseline. ~2 sporadic variable decels since 1730 & 2 late decels since last cervical check noted. Recovered well from decels after IVF bolus and changing maternal position. - Will prepare for imminent delivery when increased vaginal pressure/urge to push is reported by patient. #Vaginal bleeding - differential includes bloody show vs. cervical irritation from checks vs. developing placental abruption - discussed possibility of with mother should status change - posterior placenta noted on sono on admission # A2GDM - controlled with metformin - accuchecks q2 hr, mild SSI PRN #gHTN -patient has had -had one severe BP last night & today but likely 2/2 BP cuff misplacement today as noted in brief progress note. -Repeat pr/cr negative w/ <10 urine protein measured since admission & Plts, AST /ALT & Cr WNLs at 222, 19/09 & 0.62 today. -patient remains asymptomatic currently -will continue to monitor BPs closely #Obesity #Hx of macrosomic baby -EFW 64.6% on last growth US 11/15/2019 Dispo: Continue close monitoring on L&D for labor. Repeat cervical check when patient reports increased vaginal pressure/urge to push. PCP: Elham/Salome Addendum - Attending - Attending Attestation Date/Time: 03/06/20 4827 I personally evaluated the patient and discussed the management with Dr. Grace. I agree with the History, Examination, Assessment and Plan documented above with any addition or exceptions noted below. Although periods for Cat 2 tacving were noted, these resolved to Cat 1.
[2020-03-05] MEDS ORDERED: Misoprostol 200 MCG TAB ONE (23:35)
[2020-03-05] MEDS ORDERED: Methylergonovine 0.2 MG/ML VIAL ONE (23:35)
[2020-03-06] MEDS: Lactated Ringer's 1,000 ML IV SCH ×2 (00:41→07:20)
[2020-03-06] MEDS: NS / Oxytocin 40 units/1000ml 1,000 ML IV PRN ×2 (01:45→03:04)
[2020-03-06 01:52] LABS: Actual Bicarbonate (HCO3a) 23.8 mEq/L (22-28); Base Excess (BEa) -3.1 mEq/L (-2.0 to +3.0)
[2020-03-06 01:54] LABS: Actual Bicarbonate (HCO3v) 23 mEq/L (22-28); pH (Cord, venous) 7.32 (7.32-7.43)
--- NOTE | 2020-03-06 02:25 | PDOC.OPDEL ---
OB Operative/Delivery Note Delivery Dr/Surgeon: Dr. Esdras Harrison Assist: Dr. Radha Grace Pre-Delivery Diagnosis: active labor, elective induction Procedure/Post Delivery Dx: spontaneous vaginal delivery Weeks gestation: 34 (3) Anesthesia: none - Additional Findings/Plan Placenta delivered: spontaneous Repaired Obstetrical Laceration: other (Right-sided Corrie-Urethral Abrasion - Hemostatic 1st Degree Perineal Laceration at 6 o'clock Position - Hemostatic) Estimated blood loss: 276 ml Compilations/Other Findings: Delivering Physician: Dr. Esdras Harrison Assisting Physician: Dr. Radha Grace Attending Physician: Dr. Pankaj Jin Procedure: Spontaneous Vaginal Delivery Anesthesia: None QBL: 276 ml Pre-Op Diagnosis 1. Pre-Term Intrauterine , in Labor 2. Hx of A2GDM, gHTN, Obesity, Hx of Macrosomia Post-Op Diagnosis 1. Pre-Term Intrauterine , Delivered 2. Same as Above Indications: A 29 y/o female presents in Active Labor Delivery Note: This is a 29 y/o female @ 34.4W EGA who delivered a viable Male via at 0133 on 03/06/20. Following an uneventful antepartum course, a vigorous PLGAM was delivered over an intact perineum in the ALIRIO position. Anterior shoulder and then the remainder of the body was delivered. No nuchal cord. The head was held down and mouth and nares were bulb suctioned. Cord was clamped after delayed clamping, cut, and cord blood was collected for further evaluation. Placenta delivered intact in the [place] presentation with a 3 vessel cord noted and was sent to Pathology. Fundal massage was performed and the fundus was firm. The vagina was inspected and found to have a left-sided Corrie-Urethral Abrasion and a 1st Degree Perineal Laceration at the 6 o'clock position - both of which were hemostatic. went to the NICU in good condition for routine care. APGARs were 7 and 9 at 1 and 5 minutes respectively. Patient tolerated delivery well and went to [facility] for routine recovery/care. Post delivery plan: routine recovery Addendum - Attending - Attending Attestation Date/Time: 03/06/20 5677 I personally Supervised and assisted with the .
[2020-03-06] MEDS ORDERED: Benzocaine-Menthol 82.5 ML CAN TOP PRN (03:04)
[2020-03-06] MEDS ORDERED: NS / Oxytocin 40 units/1000ml 1,000 ML IV SCH (03:04)
[2020-03-06] MEDS ORDERED: diphenhydrAMINE 25 MG CAP PO PRN (03:04)
[2020-03-06] MEDS ORDERED: hydrALAZINE 20 MG/ML VIAL SLOW IVP PRN (03:04)
[2020-03-06] MEDS ORDERED: Preparation H Ointment 28 GM TUBE PR PRN (03:04)
[2020-03-06] MEDS ORDERED: Lanolin Ointment 7 GM TUBE TOP PRN (03:04)
[2020-03-06] MEDS ORDERED: Milk Of Magnesia 30 ML UDCUP PO PRN (03:04)
[2020-03-06] MEDS ORDERED: Bisacodyl 10 MG SUPP PR PRN (03:04)
--- NOTE | 2020-03-06 05:28 | PDOC.OBPPN ---
FMR OB PN: Subj - Interval History Hospital Day: 2 Day: 0 Chief Complaint: mild vaginal pain Indentification: 29F >2 deliered PLGA M born via @ 0133 on 03/[birth year] Interval History: mild lochia, abd slightly ttp, +BM/flatus/voiding/ambulating/ tolerating PO FMR OB PN: Obj - Maternal Vital signs: BP: [110/61] HR: [88] Tmax: [98.8] Wt: [102.512kg] - Urine output I&O: 03/04/20 03/05/20 03/06/20 06:59 06:59 06:59 Output Total 518 Balance -518 - Lochia Lochia: mild - Pain Management Intervention: oral medication FMR OB PN: Exam - Physical Exam General: NAD, awake, alert and oriented HEENT: normocephalic and atraumatic, MMM Neck: supple, FROM Chest: non-tender to palpation, no lesions Heart: RRR, normal S1/S2 General: CTAB, no respiratory distress Abdomen: soft, bowel sound present, other (slightly ttp) Musculoskeletal: pulses present, FROM in all four extremities Neurological: no tremor, no focal deficit Skin: no rash, good tugor Lymphatic: no unusual bruising or bleeding, no purpura Psychiatric: intact recent and remote memory, good judgement and insight - Pelvic Exam : no edema, normal lochia FMR OB PN: Data - Labs Lab results: Laboratory Results - last 24 hr 03/05/20 03/05/20 03/05/20 13:00 13:00 13:00 WBC RBC Hgb Hct MCV MCH MCHC RDW Plt Count MPV Bicarbonate Actual ABG Base Excess VBG HCO3 VBG Base Excess Cord ABG pH Cord ABG PCO2 (Maeya) Cord VBG pH Cord VBG pCO2 Sodium Potassium Chloride Carbon Dioxide Anion Gap BUN Creatinine Estimated GFR (MDRD) Glucose POC Glucose Calcium Total Bilirubin AST ALT Alkaline Phosphatase Serum Total Protein Albumin Globulin Albumin/Globulin Ratio U Random Total Protein Urine Creatinine Syphilis IgG/IgM Ab Nonreactive Hep Bs Antigen Non-Reactive Blood Type O POSITIVE Antibody Screen NEGATIVE 03/05/20 03/05/20 03/05/20 13:00 13:33 14:43 WBC 12.5 H RBC 4.62 Hgb 13.2 Hct 39.0 MCV 84.4 MCH 28.5 MCHC 33.7 RDW 13.8 Plt Count 222 MPV 10.0 Bicarbonate Actual ABG Base Excess VBG HCO3 VBG Base Excess Cord ABG pH Cord ABG PCO2 (Ameya) Cord VBG pH Cord VBG pCO2 Sodium Potassium Chloride Carbon Dioxide Anion Gap BUN Creatinine Estimated GFR (MDRD) Glucose POC Glucose 94 Calcium Total Bilirubin AST ALT Alkaline Phosphatase Serum Total Protein Albumin Globulin Albumin/Globulin Ratio U Random Total Protein Urine Creatinine Syphilis IgG/IgM Ab Hep Bs Antigen Blood Type O POSITIVE Antibody Screen 03/05/20 03/05/20 03/05/20 15:57 19:34 20:15 WBC RBC Hgb Hct MCV MCH MCHC RDW Plt Count MPV Bicarbonate Actual ABG Base Excess VBG HCO3 VBG Base Excess Cord ABG pH Cord ABG PCO2 (Ameya) Cord VBG pH Cord VBG pCO2 Sodium Potassium Chloride Carbon Dioxide Anion Gap BUN Creatinine Estimated GFR (MDRD) Glucose POC Glucose 115 H 158 H Calcium Total Bilirubin AST ALT Alkaline Phosphatase Serum Total Protein Albumin Globulin Albumin/Globulin Ratio U Random Total Protein Less than 10 Urine Creatinine 27.77 L Syphilis IgG/IgM Ab Hep Bs Antigen Blood Type Antibody Screen 03/05/20 03/06/20 03/06/20 21:14 00:36 01:49 WBC RBC Hgb Hct MCV MCH MCHC RDW Plt Count MPV Bicarbonate Actual 23.8 ABG Base Excess -3.1 L VBG HCO3 VBG Base Excess Cord ABG pH 7.303 Cord ABG PCO2 (Ameya) 49.2 Cord VBG pH Cord VBG pCO2 Sodium 138 Potassium 3.6 Chloride 109 H Carbon Dioxide 17 L Anion Gap 16 BUN 6 L Creatinine 0.62 Estimated GFR (MDRD) Greater than 90 Glucose 163 H POC Glucose 132 H Calcium 9.3 Total Bilirubin 0.3 AST 11 ALT 13 Alkaline Phosphatase 157 H Serum Total Protein 6.7 Albumin 3.6 Globulin 3.1 Albumin/Globulin Ratio 1.2 U Random Total Protein Urine Creatinine Syphilis IgG/IgM Ab Hep Bs Antigen Blood Type Antibody Screen 03/06/20 01:49 WBC RBC Hgb Hct MCV MCH MCHC RDW Plt Count MPV Bicarbonate Actual ABG Base Excess VBG HCO3 23 VBG Base Excess -3.0 L Cord ABG pH Cord ABG PCO2 (Ameya) Cord VBG pH 7.32 Cord VBG pCO2 45.9 Sodium Potassium Chloride Carbon Dioxide Anion Gap BUN Creatinine Estimated GFR (MDRD) Glucose POC Glucose Calcium Total Bilirubin AST ALT Alkaline Phosphatase Serum Total Protein Albumin Globulin Albumin/Globulin Ratio U Random Total Protein Urine Creatinine Syphilis IgG/IgM Ab Hep Bs Antigen Blood Type Antibody Screen FMR OB PN: A/P - Problem List (1) care and examination Current Visit: Yes Status: Acute Code(s): Z39.2 - ENCOUNTER FOR ROUTINE FOLLOW-UP Disposition: 29F >2 deliered PLGA M born via @ 0133 on 03/06 # Day 0 -mild lochia -passing flatus, has had a BM since delivery -reporting mild vaginal pain, abdomen slightly ttp -tolerating PO -ambulating -plans to f/u at [facility] @ 2 and 6wks -asked nursing to get patient a breast pump -asked nursing to help get information on the [facility] for continued support while her baby is in the NICU #Hx of Gestational HTN -BPs have been stable since delivery, 110/50s-60s #Hx of A2GDM -hold metformin -stop accuchecks -encourage patient to have glucose testing at 6wk pp visit Dispo: post-op day 0 status post @ 0133 on 03/06. Doing well. Nursing to help patient with pumping and with [facility] information Discussion: Date/Time: 03/06/20525 Signature: Yanet Flowers MD PGY-1
[2020-03-06] MEDS: Ibuprofen 800 MG TAB PO SCH ×3 (06:07→21:13)
[2020-03-06] MEDS: Acetaminophen 500 MG TAB PO SCH ×3 (06:07→21:13)
[2020-03-06] MEDS: Ferrous Sulfate 325 MG TAB PO SCH ×2 (07:19→14:50)
[2020-03-06] MEDS: Penicillin G 2.5 MILL.units 2.5 MILL.UNITS in Premix Bag 1 BAG IVPB SCH (07:20)
[2020-03-06] MEDS ORDERED: Adacel (T-DAP) 0.5 ML SYRINGE IM ONE (09:00)
[2020-03-06] MEDS: Docusate Calcium (SURFAK) 240 MG CAP PO SCH ×2 (09:07→21:13)
[2020-03-07] MEDS: Acetaminophen 500 MG TAB PO SCH (05:14)
[2020-03-07] MEDS: Ibuprofen 800 MG TAB PO SCH (05:14)
--- NOTE | 2020-03-07 06:00 | PDOC.OBPPN ---
FMR OB PN: Subj - Interval History Hospital Day: 1 Day: 2 Chief Complaint: none Indentification: 29F >2 delivered PLGA M via @ 34.4wga on 03/06 @ 0133 Interval History: VSS, emotionally stable, mild lochia, pain controlled FMR OB PN: Obj - Maternal Vital signs: BP: [110-125/68-73] HR: [74-88] RR: [12-20] Tmax: [99.3F] Pox: [99]% on [RA] Wt: [102.512kg] - Urine output I&O: 03/05/20 03/06/20 03/07/20 06:59 06:59 06:59 Output Total 518 Balance -518 - Lochia Lochia: mild - Pain Management Intervention: oral medication FMR OB PN: Exam - Physical Exam General: NAD, awake, alert and oriented HEENT: normocephalic and atraumatic, MMM Neck: supple, FROM Chest: non-tender to palpation, no lesions Heart: RRR, normal S1/S2 General: CTAB, no respiratory distress Abdomen: soft, non-tender, bowel sound present Musculoskeletal: pulses present, FROM in all four extremities Neurological: no tremor, no focal deficit Skin: no rash, good tugor : no edema, appropriately tender Lymphatic: no unusual bruising or bleeding, no purpura Psychiatric: intact recent and remote memory, good judgement and insight FMR OB PN: Data - Labs Lab results: Laboratory Results - last 24 hr 03/06/20 03/06/20 03/06/20 06:29 11:29 16:24 POC Glucose 189 H 141 H 112 H 03/06/20 03/07/20 21:17 05:18 POC Glucose 165 H 100 FMR OB PN: A/P - Problem List (1) care and examination Current Visit: Yes Status: Acute Code(s): Z39.2 - ENCOUNTER FOR ROUTINE FOLLOW-UP (2) Gestational diabetes Current Visit: No Status: Resolved Code(s): O24.419 - GESTATIONAL DIABETES MELLITUS IN , UNSP CONTROL Qualifiers: Gestational diabetes mellitus control: oral hypoglycemic-controlled Trimester: third trimester Qualified Code(s): O24.415 - Gestational diabetes mellitus in , controlled by oral hypoglycemic drugs (3) Gestational hypertension Current Visit: No Status: Resolved Code(s): O13.9 - GESTATIONAL HTN W/O SIGNIFICANT PROTEINURIA, UNSP TRIMESTER Qualifiers: Trimester: third trimester Qualified Code(s): O13.3 - Gestational [ -induced] hypertension without significant proteinuria, third trimester Disposition: 29F >2 delivered PLGA M born via @ 0133 on 03/06 # Day 1 -mild lochia -has had a BM since delivery -reporting mild vaginal pain, abdomen slightly ttp -tolerating PO -ambulating -plans to f/u at [facility] @ 2 and 6wks -patient has tried breast pump though not producing milk at this time; encouraged patient to continue pumping to encourage milk production -[facility] unfortunately not open 2/2 COVID pandemic #Hx of Gestational HTN -BPs have been stable since delivery, 110-125/60s-70s #Hx of A2GDM -discontinue metformin -[facility] accuchecks have demonstrated elevated glucose, likely due to dose of steroids -BG improved yesterday, required 2u insulin in the morning -encourage patient to have glucose testing at 6wk pp visit Diet: Regular Dispo: post-op day 1 status post @ 0133 on 03/06. Doing well. Ambulating, tolerating PO, has had BM. Possible d/c today vs tomorrow. Discussion: Date/Time: 03/07/20 8735 Signature: Yanet Flowers MD, PGY-1 Addendum - Attending - Attending Attestation Date/Time: 03/07/20 1005 I personally evaluated the patient and discussed the management with Dr. Flowers. I agree with the History, Examination, Assessment and Plan documented above with any addition or exceptions noted below.
[2020-03-07] MEDS: Ferrous Sulfate 325 MG TAB PO SCH (07:02)
[2020-03-07] MEDS: Docusate Calcium (SURFAK) 240 MG CAP PO SCH (08:33)
[2020-03-07 08:34] VITALS: BP 132/84; TEMP 98.4
[2020-03-07] MEDS ORDERED: Polyethylene Glycol 3350 17 GM Packet PO SCH (09:00)
== END 2020-03-07 12:32 | disposition home or self-care (01) | DRG 805 ==
LOC: L&D/OP 11:09 → L&D 11:59 → 3SW 03-06 04:54
PROVIDERS: ADMIT Student in an Organized Health Care Education/Training Program; ATTEND Student in an Organized Health Care Education/Training Program
PROC: 10E0XZZ Delivery of Products of Conception, External Approach (ICD-10-PCS; principal; 2020-03-06)
PROC: 0HQ9XZZ Repair Perineum Skin, External Approach (ICD-10-PCS; 2020-03-06)
DX: O24.425 Gestational diabetes mellitus in childbirth, controlled by oral hypoglycemic drugs (principal); O60.14X0 Preterm labor third trimester with preterm delivery third trimester, not applicable or unspecified; Z37.0 Single live birth; Z3A.34 34 weeks gestation of pregnancy; O13.4 Gestational [pregnancy-induced] hypertension without significant proteinuria, complicating childbirth; O99.214 Obesity complicating childbirth; E66.9 Obesity, unspecified; O76 Abnormality in fetal heart rate and rhythm complicating labor and delivery; O70.0 First degree perineal laceration during delivery
CPT/HCPCS: 36415; 36416; 76819; 80053; 82570; 82805; 84156; 85025; 85027; 86780; 86850; 86900; 86901; 87081; 87340; 96360; 96372; 99284; 99285; J0595; J0702; J2210; J2540; J3490

== ENCOUNTER 2020-12-13 07:29 | Emergency (ER) | payer MEDICAID, SELFPAY ==
[2020-12-13] MEDS ORDERED: HYDROcodone/Acetaminophen 10/325 mg Tablet ONE (07:47)
== END 2020-12-13 08:03 | disposition home or self-care (01) ==
LOC: ERS 07:29
DX: H66.91 Otitis media, unspecified, right ear (principal)
CPT/HCPCS: 99282

== ENCOUNTER 2023-07-25 19:15 | Emergency (ER) | payer SELFPAY ==
[2023-07-25 20:45] LABS: SARS-CoV-2 NAA Rapid Test Not Detected (NotDetected)
== END 2023-07-25 21:15 | disposition home or self-care (01) ==
LOC: ERS 19:15
DX: O98.512 Other viral diseases complicating pregnancy, second trimester (principal); Z3A.23 23 weeks gestation of pregnancy
CPT/HCPCS: 99283

== ENCOUNTER 2024-09-18 09:04 | Emergency (ER) | payer MEDICAID ==
[2024-09-18] MEDS ORDERED: Aspirin Chewable 81 MG TAB ONE (09:29)
[2024-09-18 09:50] LABS: #Basophils 0.05 10x3/uL (0.0-0.2); %Basophils 0.6 % (0.0-1.0); %Eosinophils 1.5 % (0.0-10.0); %Lymphocytes 26.7 % (21.0-51.0); %Monocytes 5.6 % (0.0-10.0); %Neutrophils 65.4 % (42.0-75.0); Hematocrit 41.1 % (36.0-47.0); Hemoglobin 13.9 g/dL (12.0-16.0); Mean Corpuscular HGB CONC 33.8 g/dL (32.0-36.0); Mean Corpuscular Hemoglobin 28.3 pg (27.0-31.0); Mean Corpuscular Volume 83.5 fL (78.0-98.0); Mean Platelet Volume 10.5 fL (7.4-10.4); Platelet Count 289 10x3/uL (130-400); RBC Distribution Width 12.8 % (11.5-14.5); Red Blood Cell (RBC) Count 4.92 mill/uL (4.20-5.40)
[2024-09-18 10:00] LABS: BHCG - Serum Negative (NEGATIVE); Pregs Control Background? CLEAR/WHITE (CLR/WHITE); Pregs Control Bar Appear? YES (CONTROL BAR)
[2024-09-18 10:07] LABS: ALT (SGPT) 17 U/L (8-55); AST (SGOT) 14 U/L (5-34); Albumin 4.3 g/dL (3.5-5.0); Alkaline Phosphatase 102 U/L (40-110); Anion Gap 15 mmol/L (10-20); BUN (Urea Nitrogen) 8 mg/dL (7.0-18.7); Bilirubin, Total 0.4 mg/dL (0.2-1.2); Calc. Creatinine Clearance 0 mL/min (70-130); Calcium 9.5 mg/dL (7.8-10.44); Carbon Dioxide 23 mmol/L (22-29); Chloride 103 mmol/L (98-107); Estimated GFR 119; Glucose 160 mg/dL (70-105); Lipase 15 U/L (8-78); Magnesium 1.9 mg/dL (1.6-2.6); Potassium 3.9 mmol/L (3.5-5.1); Protein, Total 8.3 g/dL (6.0-8.3); Sodium 137 mmol/L (136-145)
[2024-09-18 10:11] LABS: Troponin I Less than 0.010 ng/mL (< 0.028)
== END 2024-09-18 11:25 | disposition home or self-care (01) ==
LOC: ERS 09:04
DX: M94.0 Chondrocostal junction syndrome [Tietze] (principal); I10 Essential (primary) hypertension
CPT/HCPCS: 36415; 71045; 80053; 83690; 83735; 83880; 84484; 84703; 85025; 85379; 93005